=== PATIENT | female | born 1965 | race Caucasian/White ===

== ENCOUNTER 2018-05-24 23:11 | Emergency (ER) | payer BC, OTHER ==
[2018-05-24 23:31] VITALS: BP 146/73
--- NOTE | 2018-05-24 23:57 | EDM.PDOC ---
ED HPI GENERAL MEDICAL PROBLEM - General Chief Complaint: Gastrointestinal Problem Stated Complaint: DIZZY/UPPER ABDOMINAL PAIN Time Seen by Provider: 05/24/18 23:26 Source of Information: Reports: Patient, Family History Limitations: Reports: No Limitations - History of Present Illness INITIAL COMMENTS - FREE TEXT/NARRATIVE: This is a 52-year-old female. She states that yesterday she went to [employer] and ate all sorts of different things and didn't seem to have much problems until around 9 PM or so she started having increasing mid back pain that radiated around into the front right upper quadrant. It got pretty bad and she laid down and put a heating pad on her abdomen and got better. Then she went to bed and around 10:30 PM it came back and she had to get up and was pacing around and had to go downstairs causes of the pain and had some mild dizziness but did not fall down. She comes to the ER for evaluation due to the pain in the right upper quadrant going into her back. She says she seen her doctor and they've talked about gallbladder disease in the past but she's never had a gallbladder ultrasound that she is aware of. She did have a history of some liver problems some year ago or so and had an ultrasound of her liver but she does remember if it said anything about the gallbladder. She is actually been having some of these symptoms for the last couple of weeks. She also has a history of heartburn but this is different pain. No fever no chills. She's had some mild nausea but no vomiting. - Related Data Allergies Allergy/AdvReac Type Severity Reaction Status Date / Time adhesive Allergy Rash Verified 05/24/18 23:31 aspirin Allergy Tachycardia Verified 05/24/18 23:31 Home Meds: Home Meds Sertraline HCl [Zoloft] 200 mg PO DAILY 05/24/18 [History] Past Medical History Psychiatric History: Reports: Depression - Past Surgical History Musculoskeletal Surgical History: Reports: Carpal Tunnel Social & Family History - Tobacco Use Smoking Status *Q: Never Smoker - Caffeine Use Caffeine Use: Reports: None - Recreational Drug Use Recreational Drug Use: No ED ROS GENERAL - Review of Systems Review Of Systems: See Below Constitutional: Denies: Fever, Chills HEENT: Reports: No Symptoms Respiratory: Reports: No Symptoms Cardiovascular: Reports: No Symptoms Endocrine: Reports: No Symptoms GI/Abdominal: Reports: Abdominal Pain, Nausea, Other (History of heartburn). Denies: Diarrhea, Vomiting : Reports: No Symptoms Musculoskeletal: Reports: No Symptoms Skin: Reports: No Symptoms Neurological: Reports: Dizziness Psychiatric: Reports: No Symptoms Hematologic/Lymphatic: Reports: No Symptoms ED EXAM, GI/ABD - Physical Exam Exam: See Below Exam Limited By: No Limitations General Appearance: Alert, WD/WN, No Apparent Distress Eyes: Bilateral: Normal Appearance Ears: Normal External Exam Nose: Normal Inspection Throat/Mouth: Normal Inspection, Normal Lips, Normal Voice, No Airway Compromise Head: Normocephalic Neck: Supple Respiratory/Chest: No Respiratory Distress, Lungs Clear, Normal Breath Sounds Cardiovascular: Regular Rate, Rhythm, No Murmur GI/Abdominal Exam: Soft, Other (Patient is very tender in the right upper quadrant with a positive Miller's, the right lower quadrant and left side of the abdomen is nontender, there is no guarding there is no rigidity and there is no rebound noted) Back Exam: Full Range of Motion Extremities: Normal Inspection, Normal Range of Motion Neurological: Alert, Oriented Psychiatric: Normal Affect, Normal Mood Skin Exam: Warm, Dry Course - Vital Signs Last Recorded V/S: Last Vital Signs Temp 97.4 F 05/24/18 23:29 Pulse 101 H 05/24/18 23:29 Resp 16 05/24/18 23:29 BP 146/73 H 05/24/18 23:29 Pulse Ox 99 05/24/18 23:29 - Orders/Labs/Meds Orders: Active Orders 24 hr Category Date Time Status Abdomen Ltd [US] Stat Exams 05/25/18 00:10 Taken Sodium Chloride 0.9% [Normal Saline] 1,000 ml Med 05/25/18 01:30 Active IV ASDIRECTED Medication Orders Sodium Chloride (Normal Saline) 1,000 mls @ 100 mls/hr IV ASDIRECTED SHIVANI Last Admin: 05/25/18 01:39 Dose: 100 mls/hr Labs: Laboratory Tests 05/25/18 05/25/18 05/25/18 Range/Units 00:01 00:01 03:49 WBC 11.05 H (3.98-10.04) K/mm3 RBC 4.41 (3.98-5.22) M/mm3 Hgb 13.1 (11.2-15.7) gm/L Hct 40.3 (34.1-44.9) % MCV 91.4 (79.4-94.8) fl MCH 29.7 (25.6-32.2) pg MCHC 32.5 (32.2-35.5) g/dl RDW Std Deviation 45.1 (36.4-46.3) fL Plt Count 304 (182-369) K/mm3 MPV 8.6 L (9.4-12.3) fl Neut % (Auto) 78.0 H (34.0-71.1) % Lymph % (Auto) 16.5 L (19.3-51.7) % [place] % (Auto) 4.0 L (4.7-12.5) % Eos % (Auto) 1.2 (0.7-5.8) Baso % (Auto) 0.1 (0.1-1.2) % Neut # (Auto) 8.63 H (1.56-6.13) K/mm3 Lymph # (Auto) 1.82 (1.18-3.74) K/mm3 [place] # (Auto) 0.44 H (0.24-0.36) K/mm3 Eos # (Auto) 0.13 (0.04-0.36) K/mm3 Baso # (Auto) 0.01 (0.01-0.08) K/mm3 Sodium 140 (136-145) mEq/L Potassium 3.8 (3.5-5.1) mEq/L Chloride 104 (98-107) mEq/L Carbon Dioxide 26 (21-32) mEq/L Anion Gap 13.8 (5-15) BUN 18 (7-18) mg/dL Creatinine 1.0 (0.55-1.02) mg/dL Est Cr Clr Drug Dosing 63.27 mL/min Estimated GFR (MDRD) 58 (>60) mL/min BUN/Creatinine Ratio 18.0 (14-18) Glucose 136 H (74-106) mg/dL Calcium 9.3 (8.5-10.1) mg/dL Total Bilirubin 0.5 (0.2-1.0) mg/dL AST 103 H (15-37) U/L ALT 62 H (14-59) U/L Alkaline Phosphatase 127 H (46-116) U/L Troponin I < 0.017 (0.00-0.056) ng/mL Total Protein 7.7 (6.4-8.2) g/dl Albumin 3.4 (3.4-5.0) g/dl Globulin 4.3 gm/dL Albumin/Globulin Ratio 0.8 L (1-2) Lipase 5846 H 14584 H (73-393) U/L Meds: Medications Generic Name Dose Route Start Last Admin Trade Name Freq PRN Reason Stop Dose Admin Sodium Chloride 1,000 mls @ 100 mls/hr 05/25/18 01:30 05/25/18 01:39 Normal Saline IV 100 mls/hr ASDIRECTED SHIVANI Administration Discontinued Medications Generic Name Dose Route Start Last Admin Trade Name Freq PRN Reason Stop Dose Admin Hydromorphone HCl 0.5 mg 05/25/18 01:23 05/25/18 01:41 Dilaudid IVPUSH 05/25/18 01:24 0.5 mg ONETIME ONE Administration Ondansetron HCl 4 mg 05/25/18 01:23 05/25/18 01:40 Zofran IVPUSH 05/25/18 01:24 4 mg ONETIME ONE Administration Oxycodone/Acetaminophen 1 tab 05/25/18 01:18 05/25/18 01:41 Percocet 325-5 Mg PO 05/25/18 01:19 Not Given ONETIME ONE - Re-Assessments/Exams Free Text/Narrative Re-Assessment/Exam: 05/24/18 23:56 I asked the patient if she desired to have something for pain and nausea and she told me not yet. 05/25/18 02:20 I spoke to the patient regarding her lab results and the elevated liver enzymes especially the lipase. I also spoke to her about the ultrasound that showed gallstones and that she needs to have her gallbladder removed. I then spoke with Dr. Mondragon who will come and see the patient in the ER. Our plan is to draw another lipase to make sure the lipase is coming down and if it is we will discharge the ER for follow-up on Saturday for repeat lipase and then they will page Dr. Mondragon and she will speak to the patient on Saturday and determine when the surgery will take place this week for gallbladder removal. If for some reason lipases rising then she'll be admitted to the hospital. 05/25/18 05:34 The patient's new lipase is 31,059. She has been sleeping denies any abdominal pain. I did speak to Dr. Mondragon again regarding the elevation of the lipase and she believes that the patient probably passed a gallbladder stone to the common bile duct and that we caught the lipase beginning to rise and now 3 hours later H reaching its maximum. The patient is been without pain and been sleeping comfortably and she wants to go home. The patient has to follow up with her primary care provider on Saturday for a repeat lipase and Dr. Mondragon is available if the gallbladder needs to be removed. The patient knows that if she has marked increased pain in her abdomen she is to come directly back to the ER immediately. Departure - Departure Time of Disposition: 05:37 Disposition: Still A Patient 30 Condition: Fair Clinical Impression: Elevated liver enzymes Cholelithiasis Qualifiers: Cholelithiasis location: gallbladder Cholecystitis presence: without cholecystitis Biliary obstruction: without biliary obstruction Qualified Code(s) : K80.20 - Calculus of gallbladder without cholecystitis without obstruction Acute pancreatitis Qualifiers: Pancreatitis type: unspecified pancreatitis type Acute pancreatitis complication: unspecified Qualified Code(s): K85.90 - Acute pancreatitis without necrosis or infection, unspecified - Discharge Information *PRESCRIPTION DRUG MONITORING PROGRAM REVIEWED*: Not Applicable *COPY OF PRESCRIPTION DRUG MONITORING REPORT IN PATIENT OVI: Not Applicable Instructions: Cholelithiasis Referrals: Belle Ragland NP [Primary Care Provider] - Forms: ED Department Discharge Additional Instructions: You are on clear liquids only until you follow up with your family doctor on Saturday, no oily, greasy or fried foods, no milk just clear fluids, if there is a marked increase abdominal pain over the weekend return to the ER immediately, let your Primary Care Provider know that Dr. Mondragon (the surgeon) is willing to see you and take out your gallbladder this week if that is desired. - My Orders Last 24 Hours: My Active Orders 05/25/18 00:10 Abdomen Ltd [US] Stat 05/25/18 01:30 Sodium Chloride 0.9% [Normal Saline] 1,000 ml IV ASDIRECTED - Assessment/Plan Last 24 Hours: My Active Orders 05/25/18 00:10 Abdomen Ltd [US] Stat 05/25/18 01:30 Sodium Chloride 0.9% [Normal Saline] 1,000 ml IV ASDIRECTED
[2018-05-25] MEDS ORDERED: Acetaminophen/oxyCODONE 325-5 MG Tab PO ONE (01:18)
[2018-05-25] MEDS ORDERED: Ondansetron 4 MG/2 ML SDV IVPUSH ONE (01:23)
[2018-05-25] MEDS ORDERED: HYDROmorphone 1 MG/ML Syringe IVPUSH ONE (01:23)
[2018-05-25] MEDS ORDERED: Sodium Chloride 0.9% 1,000 ML IV SCH (01:30)
--- NOTE | 2018-05-25 18:15 | US ---
Limited abdominal ultrasound: Multiple real-time images of the upper right abdomen were obtained. Comparison: No prior abdominal imaging. Multiple small layering gallstones are seen. No gallbladder wall thickening or pericholecystic fluid is seen. Common bile duct measures slightly prominent at 8 mm. Liver is echogenic compatible with fatty infiltration. Right kidney shows no hydronephrosis or mass and has a length of 9.9 cm. Pancreas is incompletely seen. Visualized portions of the pancreas are within normal limits. Impression: 1. Multiple small layering gallstones. Common bile duct slightly prominent at 8 mm. No gallbladder wall thickening is seen. 2. Mild fatty infiltration within the liver. 3. No additional abnormality is identified on right upper quadrant abdominal ultrasound exam. Diagnostic code #3 Agree with preliminary report issued by [facility] ([facility] preliminary report dictated on 05/25/18, 2:58 Central Time)
--- NOTE | 2018-05-26 06:41 | CONS ---
CONSULTING PHYSICIAN: Flores Mondragon MD DATE OF CONSULTATION: 05/25/2018 Surgical Consultation Note CHIEF COMPLAINT: Right upper quadrant and upper back pain. BRIEF HISTORY: Ms. Cummings is a very pleasant 52-year-old female, who earlier this evening had a sudden onset of epigastric pain and radiating into her back. She also had some nausea with this. The pain was very severe, so she returned here. Of note, the patient has had this pain in the past. She stated it is really not brought on by any particular food, but she does state that she has been told that she has stones. At no time has she had any noticeable yellowing of her skin or dark urine. She has no associated diarrhea or constipation. She states that she has had these episodes on and off, but each 1 seems to be escalating in nature. Last night she did eat some food at [employer], but otherwise stated she was on her usual diet. She did take some Protonix in the past. In the emergency department her WBC was 11,000, her H and H were 13 and 40 respectively. On her electrolytes, they were normal. Her liver functions did demonstrate ALT 62 and AST which was elevated at 103, and a mild elevation of her alkaline phosphatase. Her total bilirubin was normal, but her lipase was 5846. She was afebrile. ALLERGIES: To adhesive and aspirin. MEDICATIONS: Zoloft 200 mg a day. PAST MEDICAL HISTORY: She has had multiple hand surgeries to include carpal tunnel as well as trigger fingers. She has also had eustachian tubes placed. SOCIAL HISTORY: She is . She has no children. She has 1 sister alive and well. Her father of lung CA. She does not smoke. She does not drink alcohol. She works in [employer] department. REVIEW OF SYSTEMS: No headaches. No blurred or double vision. She said some of the pressure in her ears to include on the right ear, but this has improved. She denies any thyroid or diabetes or hepatitis. She has no shortness of breath. She denies any chest heaviness or pain. History of the pain is as above. She has otherwise no other change in her abdominal exam. No hematuria, dysuria. She has no history of DVT or bleeding disorders. PHYSICAL EXAMINATION: VITAL SIGNS: GCS is 15. HEENT: Sclerae are white. NECK: Without gross mass. LUNGS: Clear, although it is difficult to hear due to her size. ABDOMEN: Totally soft, nontender, quite obese. There is no guarding or rebound. EXTREMITIES: Ankles are free of edema. LABORATORY DATA: As dictated. Ultrasound does show like small little gravel in her gallbladder with no common bile duct dilatation. IMPRESSION AND PLAN: This patient is consistent with having an episode of biliary pancreatitis. I clearly explained to her that with these episodes escalating in nature would be something she has to think about of having her gallbladder removed. At this point in time, she is nontoxic and she seems to be clinically improved and states the pain is gone. What we would like to do is we will repeat the lipase here. If it is coming down, she will be allowed to go home. She should be on clear liquids, on Saturday have a repeat of her liver function tests. This can be done as an outpatient. Then she should discuss with her primary care that she should be ready to entertain having an attempted laparoscopic cholecystectomy. I explained to her that I will be here all next week and would be available or this could be coordinated with her primary care physician. She seemed pleased with this. I tried to answer all her questions. I have also discussed this with the emergency physician and he will go from there. COREY /[id number]
== END 2018-05-25 05:47 | disposition home or self-care (01) ==
LOC: JD.ED 23:11
DX: K80.20 Calculus of gallbladder without cholecystitis without obstruction (principal); K85.90 Acute pancreatitis without necrosis or infection, unspecified; F32.9 Major depressive disorder, single episode, unspecified; R74.8 Abnormal levels of other serum enzymes; Z88.8 Allergy status to other drugs, medicaments and biological substances
CPT/HCPCS: 36415; 76705; 80053; 83690; 84484; 85025; 96361; 96374; 96375; 99285; J1170; J2405; J7040; 99284

== ENCOUNTER 2018-05-27 07:16 | Day surgery (SDC) | payer OTHER ==
[~2018-05-27 07:16] MED LIST: Lactated Ringers 1,000 ML IV SCH; Lidocaine 1%/Sod Bicarbonate in NS 8.4% 1 ML Syringe IDERM PRN; Sodium Chloride 0.9% 10 ML Syringe FLUSH PRN
[2018-05-27] MEDS ORDERED: Midazolam 1 MG/ML 2 ML SDV ONE ×2 (07:26→09:41)
[2018-05-27] MEDS ORDERED: fentaNYL 250 MCG/5 ML SDV ONE (07:26)
[2018-05-27] MEDS ORDERED: Propofol 200 MG/20 ML SDV ONE ×3 (07:26→09:24)
[2018-05-27] MEDS ORDERED: Lidocaine 1% 4 ML ONE (07:27)
[2018-05-27] MEDS ORDERED: Rocuronium 50 MG/5 ML Vial ONE (07:27)
[2018-05-27] MEDS ORDERED: Lidocaine 1% 30 ML SDV ONE (07:28)
[2018-05-27] MEDS ORDERED: ceFAZolin 1 GM Vial ONE (07:35)
[2018-05-27] MEDS ORDERED: Ondansetron 4 MG/2 ML SDV IVPUSH PRN ×2 (07:40→09:56)
[2018-05-27] MEDS ORDERED: diphenhydrAMINE 50 MG/ML SDV IVPUSH PRN ×2 (07:40→09:56)
[2018-05-27] MEDS ORDERED: fentaNYL 100 MCG/2 ML SDV IVPUSH PRN ×2 (07:40→09:56)
--- NOTE | 2018-05-27 07:44 | PCM.PREANE ---
Preanesthetic Assessment - Procedure Proposed Procedure: Laparoscopic Cholecystectomy - Anesthesia/Transfusion/Family Hx Anesthesia History: No Prior Anesthesia Family History of Anesthesia Reaction: No Transfusion History: No Prior Transfusion(s) Intubation History: Unknown - Review of Systems General: No Symptoms Pulmonary: No Symptoms Cardiovascular: No Symptoms Gastrointestinal: Nausea Neurological: No Symptoms Other: Reports: None, Depression - Physical Assessment NPO Status Date: 05/26/18 NPO Status Time: 20:00 Pulse: 76 O2 Sat by Pulse Oximetry: 99 Respiratory Rate: 16 Blood Pressure: 129/63 Temperature: 36.7 C Height: 1.7 m Weight: 120.656 kg ASA Class: 3 Mental Status: Alert & Oriented x3 Airway Class: Mallampati = 2 Dentition: Reports: [place](s) (permanent ) Thyro-Mental Finger Breadths: 3 Mouth Opening Finger Breadths: 5 ROM/Head Extension: Full Lungs: Clear to Auscultation, Normal Respiratory Effort Cardiovascular: Regular Rate, Regular Rhythm - Allergies Allergies/Adverse Reactions: Allergies Allergy/AdvReac Type Severity Reaction Status Date / Time adhesive Allergy Rash Verified 05/26/18 16:41 aspirin Allergy Tachycardia Verified 05/26/18 16:41 - Blood Blood Available: No - Anesthesia Plan Pre-Op Medication Ordered: None - Acknowledgements Anesthesia Type Planned: General Anesthesia Pt an Appropriate Candidate for the Planned Anesthesia: Yes Alternatives and Risks of Anesthesia Discussed w Pt/Guardian: Yes Pt/Guardian Understands and Agrees with Anesthesia Plan: Yes PreAnesthesia Questionnaire Psychiatric History: Reports: Depression - Past Surgical History Musculoskeletal Surgical History: Reports: Carpal Tunnel - HOME MEDS Home Medications: Home Meds Sertraline HCl [Zoloft] 200 mg PO DAILY 05/24/18 [History] - CURRENT (IN HOUSE) MEDS Current Meds: Current Medications Lactated Ringer's (Ringers, Lactated) 1,000 mls @ 125 mls/hr IV ASDIRECTED SHIVANI Stop: 05/27/18 23:00 Lidocaine/Sodium Bicarbonate (Buffered Lidocaine 1% In Ns 8.4%) 0.25 ml IDERM ONETIME PRN PRN Reason: Prior to IV Start Stop: 05/27/18 18:00 Sodium Chloride (Saline Flush) 10 ml FLUSH ASDIRECTED PRN PRN Reason: Keep Vein Open Stop: 05/27/18 18:00 Discontinued Medications Fentanyl (Sublimaze) Confirm Administered Dose 250 mcg .ROUTE .STK-MED ONE Stop: 05/27/18 07:27 Lidocaine HCl (Xylocaine-Mpf 1%) Confirm Administered Dose 4 mls @ as directed .ROUTE .STK-MED ONE Stop: 05/27/18 07:28 Lidocaine HCl (Xylocaine-Mpf 1%) Confirm Administered Dose 30 ml .ROUTE .STK- MED ONE Stop: 05/27/18 07:29 Midazolam HCl (Versed 1 Mg/Ml) Confirm Administered Dose 2 mg .ROUTE .STK-MED ONE Stop: 05/27/18 07:27 Propofol (Diprivan 20 Ml) Confirm Administered Dose 400 mg .ROUTE .STK-MED ONE Stop: 05/27/18 07:27 Propofol (Diprivan 20 Ml) Confirm Administered Dose 200 mg .ROUTE .STK-MED ONE Stop: 05/27/18 07:32 Rocuronium [place] (Zemuron) Confirm Administered Dose 50 mg .ROUTE .STK-MED ONE Stop: 05/27/18 07:28
[2018-05-27] MEDS ORDERED: ePHEDrine/Normal Saline 25 MG/5 ML Syringe ONE (08:37)
[2018-05-27] MEDS ORDERED: Ketorolac 30 MG/ML SDV ONE (08:38)
[2018-05-27] MEDS ORDERED: Ondansetron 4 MG/2 ML SDV ONE ×2 (08:38→08:43)
[2018-05-27] MEDS ORDERED: Dexamethasone 4 MG/ML SDV ONE (08:38)
[2018-05-27] MEDS ORDERED: Lactated Ringers 1,000 ML ONE (08:44)
--- NOTE | 2018-05-27 08:58 | HP ---
DATE OF ADMISSION: 05/27/2018 CHIEF COMPLAINT: Biliary colic. HISTORY OF PRESENT ILLNESS: The patient is a most pleasant 52-year-old female whom I saw on Saturday with biliary colic. She actually had a case of biliary pancreatitis. Over the course of the last 24 hours, the symptoms have improved. She was seen by her primary care and she stated that she really would like to proceed with surgery. She arrives here to the preoperative holding area. She states she feels better and the soreness and the pain has gone. She has had no additional fevers or chills. PHYSICAL EXAMINATION: LUNGS: Clear. HEART: Rhythm is regular. ABDOMEN: Soft, nontender. IMPRESSION AND PLAN: The patient is certainly a candidate for an attempt at laparoscopic cholecystectomy. I discussed with her and her clearly the risks to include but not limited to bleeding, infection, heart attack, , injury to structures not intended, and even the need that we might have to do a cholangiogram and/or even do an open procedure. I offered her a second opinion and she said no, she really wants to get this done. Even with these risks, benefits, she is going to proceed. We also talked about that we are going to do what we can for deep vein thrombosis prophylaxis to include having her actively move her legs as well as to put her on sequential compression devices. COREY /[id number]
[2018-05-27] MEDS ORDERED: Ketamine 500 mg/10 ML MDV ONE (09:21)
[2018-05-27] MEDS ORDERED: Bacitracin Oint 15 GM Tube ONE (09:23)
--- NOTE | 2018-05-27 09:48 | PCM.OPNOTE ---
- General Post-Op/Procedure Note Date of Surgery/Procedure: 05/27/18 Findings: cholelithiasis Anesthesia Technique: General ET Tube Primary Surgeon: Flores Mondragon EBL in mLs: 5 Condition: Good
[2018-05-27] MEDS ORDERED: LORazepam 2 MG/ML SDV IVPUSH ONE (09:57)
--- NOTE | 2018-05-27 10:09 | PCM.POSTAN ---
POST ANESTHESIA ASSESSMENT - MENTAL STATUS Mental Status: Disoriented (emergence delirum ) - VITAL SIGNS Pulse Rate: 89 SaO2: 100 Resp Rate: 17 Blood Pressure: 111/57 Temperature: 36.7 C - RESPIRATORY Respiratory Status: Respiratory Rate WNL, Airway Patent, O2 Saturation Stable, Supplemental Oxygen - CARDIOVASCULAR CV Status: Pulse Rate WNL, Blood Pressure Stable - GASTROINTESTINAL GI Status: No Symptoms - PAIN Pain Score: 0 (no complaints while confused ) - POST OP HYDRATION Hydration Status: Adequate & Stable
[2018-05-27] MEDS ORDERED: Albuterol 6.7 GM Inhaler INH ONE (10:19)
[2018-05-27] MEDS ORDERED: Ibuprofen 400 MG Tab PO ONE (10:48)
[2018-05-27 14:23] VITALS: BP 111/57
--- NOTE | 2018-05-27 14:23 | PCM48HPAN ---
Post Anesthesia Note - EVALUATION WITHIN 48HRS OF ANESTHETIC Vital Signs in Normal Range: Yes Patient Participated in Evaluation: Yes Respiratory Function Stable: Yes Airway Patent: Yes Cardiovascular Function Stable: Yes Hydration Status Stable: Yes Pain Control Satisfactory: Yes Nausea and Vomiting Control Satisfactory: Yes Mental Status Recovered: Yes Pulse Rate: 89 SaO2: 99 Resp Rate: 16 Temperature: 36.7 C Blood Pressure: 111/57 - COMMENTS/OBSERVATIONS Free Text/Narrative:: Received report from RN caring for patient. Patient meets discharge criteria. Discharged per protocol.
--- NOTE | 2018-05-28 10:37 | OR ---
DATE OF OPERATION: 05/27/2018 SURGEON: Flores Mondragon MD PREOPERATIVE DIAGNOSIS: Biliary colic secondary to cholelithiasis. POSTOPERATIVE DIAGNOSIS: Biliary colic secondary to cholelithiasis. OPERATION PERFORMED: Laparoscopic cholecystectomy. ANESTHESIA: General with intubation. ESTIMATED BLOOD LOSS: Less than 5 mL. REPLACEMENT: Crystalloid. BRIEF HISTORY: The patient is a 52-year-old female, who arrived here with biliary pancreatitis. I had the opportunity to see her in the emergency department as well as see her preoperatively. Discussed the risks and benefits of an attempt at laparoscopic cholecystectomy. DESCRIPTION OF PROCEDURE: After informed consent, the patient was taken to the operating room. A time-out was performed. SCDs and IV antibiotics were given, and the abdomen was prepped and draped in the usual fashion. 1% lidocaine was instilled in the infraumbilical area. I dissected down through the skin and subcutaneous tissue until I identified the fascia. I grasped the fascia between 2 sterile hemostats and elevated it superiorly. I made a shahzad in the fascia and was able to advance a Veress needle with ease. CO2 was insufflated. A 5 mm port was then advanced into the intraperitoneal cavity and a camera confirmed we had good placement. Of note, this patient is quite obese and clearly, there is at least 6 cm of adipose tissue between the fascia and her skin. At this point, I instilled 1% lidocaine in the subxiphoid area. I made a transverse incision and advanced a 12 mm port under direct vision. Two 5s were also advanced under direct vision after instilling 1% lidocaine. Her gallbladder was mildly distended, but I was able to grasp it quite easily and then we began the dissection into the triangle of [place]. Clearly, there were stones within the gallbladder and it was rather thin-walled. I was able to dissect down and identify the cystic duct. This was a little bit torturous, but I took my time to straighten it out so I could clearly see that we were well away from the common bile duct area. Three clips proximal and one distal were placed and it was divided. Then, there was a small little structure. We placed 2 clips on it and divided. Then, we were able to identify the cystic artery. Three clips proximal were placed on this without difficulty. I then divided above it and could see the lumen of the artery and there was no active bleeding. This was on the gallbladder obviously. I then took my time to take the gallbladder out of the gallbladder fossa using meticulous hemostasis. When I was about like 3 cm from the end, there was a small hole made in the gallbladder. No stones were noted to spill, but there was a bit of bile. We continued on and then removed the gallbladder, placed it in an Endobag, and brought it up through the upper incision with ease. I then irrigated with normal saline to the tune of about 1.5 L to remove all the bile. As I stated, no stones were spilled. Once I removed all the irrigant, I reassessed that the clips were in good position and the gallbladder fossa was hemostatically sound. I removed the 3 upper ports, the two 5s and the 12 under direct vision. No bleeding was noted. The camera was removed. I attempted to close the 12 mm port site multiple times, but due to her obesity, was not able to engage the needle satisfactorily. I elected to abort. In the infraumbilical 5, I was very fortunate I got 1 good stitch to close it down. This was with Vicryl. I then did a subcuticular closure. Of note, she does not like tape, so we simply placed some Neosporin and placed a 2 x 2 over the incisions. She tolerated the procedure well and now, she will have to refrain from driving and she can go back to her regular activities by Saturday. COREY /[id number]
--- NOTE | 2018-05-28 10:37 | OR ---
DATE OF OPERATION: 05/27/2018 SURGEON: Flores Mondragon MD ADDENDUM: Of note, the cystic duct was not dilated and the gallbladder was not markedly inflamed and so, therefore, I elected not to do a cholangiogram. MMODAL /[id number]
== END 2018-05-27 12:46 | disposition home or self-care (01) ==
LOC: JD.SDS 07:16
PROVIDERS: ATTEND Surgery
DX: K80.10 Calculus of gallbladder with chronic cholecystitis without obstruction (principal); F41.9 Anxiety disorder, unspecified; F32.9 Major depressive disorder, single episode, unspecified; E66.9 Obesity, unspecified; Z68.41 Body mass index [BMI] 40.0-44.9, adult; Z88.6 Allergy status to analgesic agent; Z79.52 Long term (current) use of systemic steroids; Z79.810 Long term (current) use of selective estrogen receptor modulators (SERMs); Z79.899 Other long term (current) drug therapy; Z91.048 Other nonmedicinal substance allergy status
CPT/HCPCS: 47562; A9270; J0690; J1100; J1885; J2001; J2060; J2250; J2405; J2704; J3010; J7050; J7120; 00790

== ENCOUNTER 2018-07-13 16:00 | Emergency (ER) | payer OTHER ==
[2018-07-13] MEDS ORDERED: Dicyclomine 10 MG Cap PO ONE (16:28)
[2018-07-13] MEDS ORDERED: Hyoscyamine 0.125 MG Tab.SL SL ONE (16:28)
--- NOTE | 2018-07-13 16:35 | EDM.PDOC ---
<Kareem Willett - Last Filed: 07/13/18 16:29> ED HPI GENERAL MEDICAL PROBLEM - General Chief Complaint: Chest Pain Stated Complaint: CHEST DISCOMPORT/HURTS BETWEEN SHOULDER BLADES Time Seen by Provider: 07/13/18 16:10 Source of Information: Reports: Patient History Limitations: Reports: No Limitations - History of Present Illness INITIAL COMMENTS - FREE TEXT/NARRATIVE: 33-year-old female presents the ED with diffuse epigastric pressure discomfort radiating through to her intrascapular area of her back. Present for about 4 hours. No associated nausea vomiting or real heartburn although she's states that she feels like she has heartburn. She did take [id number]-[id number] preparation for heartburn were not sure exactly what this was. She does talk some Pepto-Bismol without any relief. Much to eat yet today. There is no associated burping or belching. Pain wasn't made worse by walking or exertion. He denies any cough or sputum production denies any fever or chills. She has her gallbladder previously removed within the last year laparoscopically wounds are still healing. Chest Pain Score (Numeric/FACES): 5 - Related Data Allergies Allergy/AdvReac Type Severity Reaction Status Date / Time adhesive Allergy Rash Verified 05/26/18 16:41 aspirin AdvReac Tachycardia Verified 05/28/18 07:40 Home Meds: Home Meds Sertraline HCl [Zoloft] 200 mg PO DAILY 05/24/18 [History] Progesterone,Micronized [Progesterone] 100 mg PO DAILY 05/27/18 [History] Dicyclomine [Bentyl] 10 mg PO TID PRN 10 Days #30 cap 07/13/18 [Rx] Past Medical History Psychiatric History: Reports: Depression - Past Surgical History Musculoskeletal Surgical History: Reports: Carpal Tunnel Social & Family History - Caffeine Use Caffeine Use: Reports: None EKG INTERPRETATION EKG Date: 07/13/18 Time: 16:13 Rhythm: NSR Rate (Beats/Min): 93 P-Wave: Enlarged (Consider left atrial hypertrophy) QRS: Other (Early R-wave transition with delayed R-wave transition.) ST-T: Other QT: Prolonged EKG Interpretation Comments: Abnormal ECG with no signs of ischemia. Course - Vital Signs Last Recorded V/S: Last Vital Signs Temp 96.9 F 07/13/18 16:19 Pulse 96 07/13/18 16:19 Resp 16 07/13/18 16:19 BP 152/83 H 07/13/18 16:19 Pulse Ox 100 07/13/18 16:19 - Orders/Labs/Meds Orders: Active Orders 24 hr Category Date Time Status EKG Documentation Completion [RC] STAT Care 07/13/18 16:30 Active Abdomen 1V Flat [CR] Stat Exams 07/13/18 16:33 Taken Chest 2V [CR] Stat Exams 07/13/18 16:30 Taken Labs: Laboratory Tests 07/13/18 07/13/18 Range/Units 16:18 16:18 WBC 8.40 (3.98-10.04) K/mm3 RBC 4.39 (3.98-5.22) M/mm3 Hgb 13.2 (11.2-15.7) gm/L Hct 39.6 (34.1-44.9) % MCV 90.2 (79.4-94.8) fl MCH 30.1 (25.6-32.2) pg MCHC 33.3 (32.2-35.5) g/dl RDW Std Deviation 41.9 (36.4-46.3) fL Plt Count 327 (182-369) K/mm3 MPV 8.6 L (9.4-12.3) fl Neutrophils % (Manual) 58 (40-60) % Band Neutrophils % 0 (0-10) % Lymphocytes % (Manual) 39 (20-40) % Atypical Lymphs % 0 % Monocytes % (Manual) 2 (2-10) % Eosinophils % (Manual) 1 (0.7-5.8) % Basophils % (Manual) 0 L (0.1-1.2) Platelet Estimate Adequate RBC Morph Comment Normal Sodium 138 (136-145) mEq/L Potassium 3.7 (3.5-5.1) mEq/L Chloride 102 (98-107) mEq/L Carbon Dioxide 27 (21-32) mEq/L Anion Gap 12.7 (5-15) BUN 14 (7-18) mg/dL Creatinine 1.1 H (0.55-1.02) mg/dL Est Cr Clr Drug Dosing 46.24 mL/min Estimated GFR (MDRD) 52 (>60) mL/min BUN/Creatinine Ratio 12.7 L (14-18) Glucose 110 H (74-106) mg/dL Calcium 9.3 (8.5-10.1) mg/dL Total Bilirubin 0.3 (0.2-1.0) mg/dL AST 17 (15-37) U/L ALT 27 (14-59) U/L Alkaline Phosphatase 129 H (46-116) U/L CK-MB (CK-2) 0.5 (0-3.6) ng/ml Troponin I < 0.017 (0.00-0.056) ng/mL C-Reactive Protein 0.9 (<1.0) mg/dL Total Protein 8.1 (6.4-8.2) g/dl Albumin 3.7 (3.4-5.0) g/dl Globulin 4.4 gm/dL Albumin/Globulin Ratio 0.8 L (1-2) Lipase 121 (73-393) U/L Meds: Medications Discontinued Medications Generic Name Dose Route Start Last Admin Trade Name Freq PRN Reason Stop Dose Admin Dicyclomine HCl 20 mg 07/13/18 16:28 07/13/18 16:36 Bentyl PO 07/13/18 16:29 20 mg ONETIME ONE Administration Hyoscyamine 0.125 mg 07/13/18 16:28 07/13/18 16:37 Hyomax-Sl SL 07/13/18 16:29 0.125 mg ONETIME ONE Administration - Radiology Interpretation Free Text/Narrative:: 53-year-old female presents the ED with her . She reports epigastric pressure discomfort rating up into her retrosternal chest and infrascapular area in her back. This started about 4-5 hours ago and is persisting. No associated nausea vomiting. She states she feels a lot like heartburn. She feels a lot like it's when she did when she had her gallbladder. Gallbladder was removed about a year ago laparoscopically. No associated nausea vomiting. No associated feeling of shortness of breath. No satiety burping or belching. And examined with nurse practitioner Shira Keyes and care directed. She will receive Levsin 0.125 mg sublingually and Bentyl 20 mg by mouth as I suspect this is GI in origin. ECG has been done and read. I see no signs of ischemia. Departure - Departure Disposition: Home, Self-Care 01 Clinical Impression: Hiatal hernia Gastroesophageal reflux disease Qualifiers: Esophagitis presence: without esophagitis Qualified Code(s): K21.9 - Gastro- esophageal reflux disease without esophagitis Prescriptions: Dicyclomine [Bentyl] 10 mg PO TID PRN 10 Days #30 cap PRN Reason: Abdominal Pain Instructions: Indigestion, [id number], Food Choices for Gastroesophageal Reflux Disease, Adult, Hiatal Hernia Referrals: Belle Ragland LOAD MANAGER [Primary Care Provider] - Forms: ED Department Discharge Additional Instructions: You have been diagnosis with hiatal hernia and GERD. Your labs studies were unremarkable. You need to follow up with your PCP. Return to the ER for any new or acute worsening symptoms. You have been given a RX for Bentyl take as directed. Instructed to return to the ER for any new or acute worsening symptoms. She was stable at time of discharge. - My Orders Last 24 Hours: My Active Orders 07/13/18 16:30 EKG Documentation Completion [RC] STAT Chest 2V [CR] Stat - Assessment/Plan Last 24 Hours: My Active Orders 07/13/18 16:30 EKG Documentation Completion [RC] STAT Chest 2V [CR] Stat <Shira Keyes - Last Filed: 07/13/18 17:46> ED HPI GENERAL MEDICAL PROBLEM - History of Present Illness Onset: Today Onset Date: 07/13/18 Onset Time: 14:00 Duration: Getting Worse Location: Reports: Abdomen Quality: Reports: Dull Severity: Mild Improves with: Reports: None Worsens with: Reports: None Associated Symptoms: Reports: Chest Pain. Denies: Cough, Fever/Chills, Nausea/ Vomiting, Shortness of Breath ED ROS GENERAL - Review of Systems Review Of Systems: See Below Constitutional: Reports: No Symptoms HEENT: Reports: No Symptoms Respiratory: Reports: No Symptoms Cardiovascular: Reports: No Symptoms Endocrine: Reports: No Symptoms GI/Abdominal: Reports: Abdominal Pain, Other (epigastric pain) : Reports: No Symptoms Musculoskeletal: Reports: Shoulder Pain Skin: Reports: No Symptoms Neurological: Reports: No Symptoms Psychiatric: Reports: No Symptoms Hematologic/Lymphatic: Reports: No Symptoms Immunologic: Reports: No Symptoms ED EXAM, GENERAL - Physical Exam Exam: See Below Exam Limited By: No Limitations General Appearance: Alert, WD/WN, No Apparent Distress Ears: Normal External Exam, Normal Canal, Hearing Grossly Normal, Normal TMs Nose: Normal Inspection, Normal Mucosa, No Blood Throat/Mouth: Normal Inspection, Normal Lips, Normal Teeth, Normal Gums, Normal Oropharynx, Normal Voice, No Airway Compromise Head: Atraumatic, Normocephalic Neck: Normal Inspection, Supple, Non-Tender, Full Range of Motion Respiratory/Chest: No Respiratory Distress, Lungs Clear, Normal Breath Sounds, No Accessory Muscle Use, Chest Non-Tender Cardiovascular: Normal Peripheral Pulses, Regular Rate, Rhythm, No Edema, No Gallop, No JVD, No Murmur, No Rub GI/Abdominal: Normal Bowel Sounds, Soft, Non-Tender, No Organomegaly, No Distention, No Abnormal Bruit, No Mass, Pelvis Stable Extremities: Normal Inspection, Normal Range of Motion, Non-Tender, No Pedal Edema, Normal Capillary Refill Neurological: Alert, Oriented, CN II-XII Intact, Normal Cognition, Normal Gait, Normal Reflexes, No Motor/Sensory Deficits Psychiatric: Normal Affect, Normal Mood Skin Exam: Warm, Dry, Intact, Normal Color, No Rash Lymphatic: No Adenopathy Course - Re-Assessments/Exams Free Text/Narrative Re-Assessment/Exam: 07/13/18 17:45 Her WBC is 8.4 H & H 13.2/39.6 sodium 138 potassium 3.7 chloride 102 carbon dioxide 27 BUN14 creatinine 1.1. AST 17 ALT 27 Lipase 121. Departure - Departure Time of Disposition: 17:37 Condition: Good
[2018-07-13 18:14] VITALS: BP 121/63
--- NOTE | 2018-07-14 06:32 | CR ---
Chest: Two views of the chest were obtained. Comparison: No prior chest x-ray. Heart size is normal. Tortuous thoracic aorta is seen. Incidental azygos lobe is seen. Lungs are clear with no acute parenchymal change. Bony structures appear within normal limits for the patient's age. Surgical clips are seen within the upper abdomen. Impression: 1. Incidental findings. Nothing acute is appreciated on two-view chest x-ray. Diagnostic code #2
--- NOTE | 2018-07-14 06:32 | CR ---
Abdomen: Supine view of the abdomen was obtained. Comparison: No prior abdominal x-ray. Bowel gas pattern is normal. Surgical clips are seen from prior cholecystectomy. No abnormal calcifications or discrete soft tissue abnormality is seen. Bony structures appear within normal limits for the patient's age. Impression: 1. Nothing acute is appreciated on supine abdominal x-ray. Diagnostic code #2
== END 2018-07-13 18:13 | disposition home or self-care (01) ==
LOC: JD.ED 16:00
DX: K21.9 Gastro-esophageal reflux disease without esophagitis (principal); K44.9 Diaphragmatic hernia without obstruction or gangrene; F32.9 Major depressive disorder, single episode, unspecified; Z91.09 Other allergy status, other than to drugs and biological substances; Z88.6 Allergy status to analgesic agent; Z79.899 Other long term (current) drug therapy
CPT/HCPCS: 36415; 71046; 74018; 80053; 82553; 83690; 84484; 85007; 85027; 86140; 93005; 99285; A9270; 93010; 99284

== ENCOUNTER 2019-04-20 17:31 | Emergency (ER) | payer OTHER ==
[2019-04-20 17:46] VITALS: BP 157/74; PULSE 90
[2019-04-20] MEDS ORDERED: Acetaminophen/Codeine 300-30 MG Tab PO ONE (19:21)
--- NOTE | 2019-04-20 19:29 | EDM.PDOC ---
ED HPI GENERAL MEDICAL PROBLEM - General Chief Complaint: Upper Extremity Injury/Pain Stated Complaint: L HAND INJURY Time Seen by Provider: 04/20/19 18:39 Source of Information: Reports: Patient, Family () History Limitations: Reports: No Limitations - History of Present Illness INITIAL COMMENTS - FREE TEXT/NARRATIVE: Mrs. Cummings is a very pleasant 53-year-old woman who states that she slipped on ice and fell onto an outstretched left hand around 16:45 this afternoon, while leaving work. She presents with pain primarily to her left thenar eminence, as well as to her left wrist. She reports numbness to her thenar eminence, and tingling to her fingers. She is otherwise uninjured. No prior left hand injury. The patient's PCP is Belle Ragland NP. Her Psychiatrist is Dr. Jory Coyle. The patient did not receive an influenza vaccine this season, but declined an offer for one here. Left Hand Pain Score (Numeric/FACES): 8 - Related Data Allergies Allergy/AdvReac Type Severity Reaction Status Date / Time adhesive Allergy Rash Verified 04/20/19 17:46 aspirin AdvReac Tachycardia Verified 04/20/19 17:46 Home Meds: Home Meds Sertraline HCl [Zoloft] 200 mg PO DAILY 05/24/18 [History] Progesterone, Micronized [Progesterone] 100 mg PO DAILY 05/27/18 [History] Dicyclomine [Bentyl] 10 mg PO TID PRN 10 Days #30 cap 07/13/18 [Rx] Past Medical History HEENT History: Reports: Impaired Vision Psychiatric History: Reports: Depression Endocrine/Metabolic History: Reports: Obesity/BMI 30+ - Past Surgical History HEENT Surgical History: Reports: Oral Surgery (wisdom teeth extraction) GI Surgical History: Reports: Cholecystectomy (May 2018) Female Surgical History: Reports: D&C (x 1), Hysterectomy (complete) Musculoskeletal Surgical History: Reports: Carpal Tunnel (bilateral), Other ( See Below) (Right trigger finger release x 2) Social & Family History - Tobacco Use Smoking Status *Q: Never Smoker Second Hand Smoke Exposure: No - Caffeine Use Caffeine Use: Reports: Coffee - Alcohol Use Alcohol Use History: No - Recreational Drug Use Recreational Drug Use: Yes Drug Use in Last 12 Months: No Recreational Drug Type: Reports: Marijuana/Hashish (tried at 18 years old) - Living Situation & Occupation Living situation: Reports: , with Spouse Occupation: Employed ([employer]) Review of Systems - Review of Systems Review Of Systems: Comprehensive ROS is negative, except as noted in HPI. ED EXAM, GENERAL - Physical Exam Exam: See Below Exam Limited By: No Limitations General Appearance: Alert, WD/WN, No Apparent Distress Extremities: Other (There is mild swelling to the left thenar eminence, when compared to the right, and there is a small abrasion on the thenar eminence, as well. There are no other visible abnormalities, such as erythema or ecchymosis, although the thenar eminence is tender. The patient reports pain to the first metacarpal bone with axial load of the thumb, but relief of pain with distraction of the thumb. No pain is induced with torsion of the thumb, either direction. No tenderness to palpation over the dorsal aspect of the first metacarpal and no tenderness to the anatomic snuffbox. Mild pain with AROM of the left wrist, although the patient reports no tenderness to the left wrist, and there are no visible abnormalities to the wrist, whatsoever, such as swelling, erythema, ecchymosis, or abrasion. The patient reports significant continuing/numbness to her left thenar eminence, and some tingling to her fingers, but vascular status of the left hand is intact.) Course - Vital Signs Last Recorded V/S: Last Vital Signs Temp 36.4 C 04/20/19 17:44 Pulse 90 04/20/19 17:44 Resp 16 04/20/19 17:44 BP 157/74 H 04/20/19 17:44 Pulse Ox 98 04/20/19 17:44 - Orders/Labs/Meds Meds: Medications Discontinued Medications Generic Name Dose Route Start Last Admin Trade Name Freq PRN Reason Stop Dose Admin Acetaminophen/Codeine Phosphate 1 tab 04/20/19 19:21 04/20/19 19:39 Tylenol With Codeine No.3 300mg/30mg PO 04/20/19 19:22 1 tab ONETIME ONE Administration - Re-Assessments/Exams Free Text/Narrative Re-Assessment/Exam: 04/20/19 19:22 As per the HPI, the patient suffered a left FOOSH injury, primarily affecting her first metacarpal. I have ordered x-rays of her left wrist and left hand. In the meantime, the patient requested a single T3. 04/20/19 20:00 2-view radiographs of the left wrist appear to be normal. No fractures or dislocations identified. Formal read per the Radiologist pending. 4-view radiographs of the left hand appear to be normal. No fractures or dislocations identified. Formal read per the Radiologist pending. 04/20/19 20:03 X-ray results discussed with the patient and her . The patient appears to have a contusion to her left thenar eminence. I am recommending that she ice her hand for a couple of days, to help minimize swelling. Ibuprofen will likely work better than Tylenol for discomfort. I will refer her to Ortho, in the event that her hand simply does not get better over the next couple of weeks. Departure - Departure Time of Disposition: 20:04 Disposition: Home, Self-Care 01 Condition: Good Clinical Impression: Contusion of left hand - Discharge Information *PRESCRIPTION DRUG MONITORING PROGRAM REVIEWED*: Not Applicable *COPY OF PRESCRIPTION DRUG MONITORING REPORT IN PATIENT OVI: Not Applicable Instructions: Hand Contusion, [id number] Referrals: Belle Ragland NP [Primary Care Provider] - Talat Underwood MD [Physician] - Free,Jory Ordonez MD [Ordering Only Provider] - Forms: ED Department Discharge Additional Instructions: You were seen in the emergency room after slipping on ice and falling onto your left hand. Workup in the ER included x-rays of your left hand and left wrist, all of which were normal. No broken bones or dislocations were found. Based on your history, physical exam, and ER x-rays, you have most likely contused (bruised) your left hand. We recommend that you ice your left hand as much as possible over the next 2 days, to help minimize swelling. We recommend that you take [id number] Tylenol or ibuprofen as needed for discomfort. Ibuprofen will likely work better than Tylenol. If you are still having considerable pain to your left hand after 2 weeks, please follow-up with the Orthopedic Surgeon Dr. Talat Underwood. If any other problems, please do not hesitate to return to the ER. Sepsis Event Note - Evaluation Sepsis Screening Result: No Definite Risk - Focused Exam Vital Signs: Vital Signs Temp Pulse Resp BP Pulse Ox 04/20/19 17:44 36.4 C 90 16 157/74 H 98 Date Exam was Performed: 04/21/19 Time Exam was Performed: 02:22
--- NOTE | 2019-04-20 20:08 | CR ---
Left hand: 4 views of the left hand were obtained. Comparison: No previous left hand exam. Joint spaces are preserved. No fracture, dislocation or other bony abnormality is seen. Impression: 1. No abnormality is identified on left hand exam. Diagnostic code #1 This report was dictated in [place] Standard Time
--- NOTE | 2019-04-20 20:08 | CR ---
Left wrist: 2 views of the left wrist were obtained. Comparison: No prior wrist study. Joint spaces within the left wrist are preserved. No fracture or other bony abnormality is seen. Impression: 1. No abnormality is appreciated on 2 view left wrist exam. Diagnostic code #1 This report was dictated in [place] Standard Time
== END 2019-04-20 20:37 | disposition home or self-care (01) ==
LOC: JD.ED 17:31
DX: S60.222A Contusion of left hand, initial encounter (principal); F32.9 Major depressive disorder, single episode, unspecified; Z79.899 Other long term (current) drug therapy; Z88.8 Allergy status to other drugs, medicaments and biological substances; Z91.048 Other nonmedicinal substance allergy status; W00.0XXA Fall on same level due to ice and snow, initial encounter
CPT/HCPCS: 73100; 73130; 99283; A9270; 99282

== ENCOUNTER 2020-04-18 21:01 | Emergency (ER) | payer OTHER ==
[2020-04-18] MEDS ORDERED: Lidocaine 1% 10 ML MDV INJECT ONE (21:14)
[2020-04-18] MEDS ORDERED: LORazepam 0.5 MG Tab PO ONE (21:14)
[2020-04-18 21:17] VITALS: BP 139/88; PULSE 62
--- NOTE | 2020-04-18 21:48 | EDM.PDOC ---
ED HPI GENERAL MEDICAL PROBLEM - General Chief Complaint: Laceration Stated Complaint: ARM LAC Time Seen by Provider: 04/18/20 21:06 Source of Information: Reports: Patient, RN Notes Reviewed History Limitations: Reports: No Limitations - History of Present Illness INITIAL COMMENTS - FREE TEXT/NARRATIVE: Patient is a 54-year-old female presenting to the emergency department with complaints of a laceration to the volar aspect of her left forearm. 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 States her last tetanus vaccination was approximately 4 years ago. She is feeling quite anxious. States she normally takes Ativan 0.5 mg for anxiety but she does not have it with her. Left Arm Pain Score (Numeric/FACES): 1 - Related Data Allergies Allergy/AdvReac Type Severity Reaction Status Date / Time adhesive Allergy Rash Verified 04/18/20 21:17 rhubarb Allergy Cannot Verified 04/18/20 21:17 Remember aspirin AdvReac Tachycardia Verified 04/18/20 21:17 Home Meds: Home Meds Sertraline HCl [Zoloft] 200 mg PO DAILY 05/24/18 [History] Progesterone, Micronized [Progesterone] 100 mg PO DAILY 05/27/18 [History] Dicyclomine [Bentyl] 10 mg PO TID PRN 10 Days #30 cap 07/13/18 [Rx] Past Medical History HEENT History: Reports: Impaired Vision Psychiatric History: Reports: Depression Endocrine/Metabolic History: Reports: Obesity/BMI 30+ - Past Surgical History HEENT Surgical History: Reports: Oral Surgery GI Surgical History: Reports: Cholecystectomy Female Surgical History: Reports: D&C, Hysterectomy Musculoskeletal Surgical History: Reports: Carpal Tunnel, Other (See Below) Other Musculoskeletal Surgeries/Procedures:: carpual tunnel release, tendon repair bilaterally Social & Family History - Tobacco Use Tobacco Use Status *Q: Never Tobacco User Second Hand Smoke Exposure: No - Caffeine Use Caffeine Use: Reports: Coffee - Recreational Drug Use Recreational Drug Use: No - Living Situation & Occupation Living situation: Reports: , with Spouse Occupation: Employed ([employer]) ED ROS GENERAL - Review of Systems Review Of Systems: Comprehensive ROS is negative, except as noted in HPI. ED EXAM, SKIN/RASH Exam: See Below Exam Limited By: No Limitations General Appearance: Alert, WD/WN, No Apparent Distress Respiratory/Chest: No Respiratory Distress, Lungs Clear, Normal Breath Sounds, No Accessory Muscle Use, Chest Non-Tender Cardiovascular: Normal Peripheral Pulses, Regular Rate, Rhythm, No Edema, No Gallop, No JVD, No Murmur, No Rub Extremities: Other (3 cm gaping laceration to the volar aspect of the left forearm. No active bleeding.) ED SKIN PROCEDURES - Laceration/Wound Repair Left Lower Ventral Arm Appearance: Subcutaneous Distal NVT: Neuro & Vascular Intact, No Tendon Injury Anesthetic Type: Local Local Anesthesia - Lidocaine (Xylocaine): 1% Plain Local Anesthetic Volume: 2cc Skin Prep: Chlorhexidine (Hibiciens), Providone-Iodine (Betadine), Saline, Sterile Drape Exploration/Debridement/Repair: Wound Explored, No Foreign Material Found Closed with: Sutures Lac/Wound length In cm: 3 Suture Size: 4-0 # of Sutures: 5 Suture Type: Nylon Sterile Dressing Applied: Nurse Tetanus Status Addressed: Yes Complications: No Course - Vital Signs Last Recorded V/S: Last Vital Signs Temp 96.9 F 04/18/20 21:11 Pulse 62 04/18/20 21:11 Resp 16 04/18/20 21:11 BP 139/88 04/18/20 21:11 Pulse Ox 99 04/18/20 21:11 - Orders/Labs/Meds Meds: Medications Discontinued Medications Generic Name Dose Route Start Last Admin Trade Name Nicole PRN Reason Stop Dose Admin Lidocaine HCl 10 ml 04/18/20 21:14 04/18/20 21:27 Xylocaine 1% INJECT 04/18/20 21:15 10 ml ONETIME ONE Administration Lorazepam 0.5 mg 04/18/20 21:14 04/18/20 21:26 Ativan PO 04/18/20 21:15 0.5 mg ONETIME ONE Administration Departure - Departure Time of Disposition: 21:47 Disposition: Home, Self-Care 01 Condition: Good Clinical Impression: Laceration, Anxiety - Discharge Information *PRESCRIPTION DRUG MONITORING PROGRAM REVIEWED*: No *COPY OF PRESCRIPTION DRUG MONITORING REPORT IN PATIENT OVI: No Instructions: Sutures, Debra, or Adhesive Wound Closure, [id number] Referrals: Belle Ragland NP [Primary Care Provider] - Additional Instructions: You were seen in the emergency department today for a laceration to your left forearm. The wound was cleansed and closed with 5 sutures. These should stay intact for 7-10 days. After that time they may be removed in the clinic by a nurse. Keep the wound clean and dry. Wash with normal soap and water twice daily. Do not submerge the wound in water. Watch for signs of infection including increased redness, swelling, or purulent drainage. If these should occur, you should be seen either in the clinic or in the emergency department as antibiotic treatment may be needed. Return to the ER as needed. Sepsis Event Note (ED) - Evaluation Sepsis Screening Result: No Definite Risk - Focused Exam Vital Signs: Vital Signs Temp Pulse Resp BP Pulse Ox 04/18/20 21:11 96.9 F 62 16 139/88 99
== END 2020-04-18 21:55 | disposition home or self-care (01) ==
LOC: JD.ED 21:01
DX: S51.812A Laceration without foreign body of left forearm, initial encounter (principal); F41.9 Anxiety disorder, unspecified; F32.9 Major depressive disorder, single episode, unspecified; E66.9 Obesity, unspecified; Z68.39 Body mass index [BMI] 39.0-39.9, adult; Z91.048 Other nonmedicinal substance allergy status; Z88.6 Allergy status to analgesic agent; Z79.899 Other long term (current) drug therapy; W26.0XXA Contact with knife, initial encounter; Y93.G1 Activity, food preparation and clean up
CPT/HCPCS: 12002; 99282; A9270; J2001